=== PATIENT | female | born 1980 | race Caucasian/White ===

== ENCOUNTER 2021-12-27 09:57 | Emergency (ER) | payer OTHER ==
[~2021-12-27] VITALS: Ht 162.6 cm; Wt 65.3 kg
[2021-12-27 10:02] VITALS: BP 128/84
--- NOTE | 2021-12-27 10:05 | NUR ---
AMBULATED TO BED 12
--- NOTE | 2021-12-27 10:13 | NUR ---
41 Y/O FEMALE C/O DYSURIA AND FLANK PAIN 03/28 X1DAY. PT REPORTS TAKING TYLENOL WITH MILD RELIEF. PT STATES INTERMITTENT FEVERS X5DAYS. PT STATES 1 TIME MILD HEMATURIA BUT NONE TODAY. DENIES DISCHARGE. N/V/D. DENIES PMH NKA
--- NOTE | 2021-12-27 10:20 | NUR ---
DR. PHILLIPS AT PT BEDSIDE FOR FURTHER EVALUATION.
[2021-12-27 12:05] LABS: BASOPHILS # (AUTO) 0.1 K/uL (0.00-0.22); EOSINOPHILS % (AUTO) 0.6 % (0.0-4.0); HEMATOCRIT 38.7 % (36-48); HEMOGLOBIN 13.4 g/dL (12.0-16.0); LYMPHOCYTES # (AUTO) 1.1 K/uL (2.5-16.5); LYMPHOCYTES % (AUTO) 14.9 % (20.5-51.1); MEAN CORPUSCULAR HEMOGLOBIN 31 pg (27-31); MEAN CORPUSCULAR HGB CONC 35 g/dL (33-37); MEAN CORPUSCULAR VOLUME 90.2 fL (80-94); MONOCYTES # (AUTO) 0.6 K/uL (0.8-1.0); MONOCYTES % (AUTO) 8.1 % (1.7-9.3); NEUTROPHILS # (AUTO) 5.8 K/uL (1.8-7.7); NEUTROPHILS % (AUTO) 75.4 % (42.2-75.2); PLATELET COUNT (AUTO) 203 K/uL (140-450); RED CELL DISTRIBUTION WIDTH 12.9 % (11.6-13.7); WHITE BLOOD COUNT (AUTO) 7.7 K/uL (4.8-10.8)
[2021-12-27 12:41] LABS: ALBUMIN 3.9 g/dL (3.4-5.0); ANION GAP 11.4 (8-16); CARBON DIOXIDE 27.2 mmol/L (21-32); CREATININE 0.8 mg/dL (0.6-1.3); POTASSIUM 4.6 mmol/L (3.5-5.1); TOTAL BILIRUBIN 0.4 mg/dL (0.0-1.0)
[2021-12-27] MEDS ORDERED: SULFAMETH/TRIMETH DS 800/160MG 1 TAB PO ONE (12:50)
--- NOTE | 2021-12-27 12:51 | NUR ---
PT SITTING IN CHAIR, VSS, WILL CONTINUE TO MONITOR.
[2021-12-27] MEDS ORDERED: SULF-59 PO (13:25)
[2021-12-27 13:47] VITALS: BP 122/77
--- NOTE | 2021-12-27 13:48 | NUR ---
Patient discharged with v/s stable. Written and verbal after care instructions given FOR PYELONEPHRITIS and explained. Patient alert, oriented and verbalized understanding of instructions. Ambulatory with steady gait. All questions addressed prior to discharge. ID band removed. Patient advised to follow up with PMD. Rx of BACTRIM given. Patient educated on indication of medication including possible reaction and side effects. Opportunity to ask questions provided and answered.
[2021-12-27 13:49] LABS: APPEARANCE,URINE SLIGHTLY CLOUDY (CLEAR); COLOR,URINE YELLOW (YELLOW)
[2021-12-27 13:50] LABS: BILIRUBIN,URINE NEGATIVE (NEGATIVE); BLOOD, URINE 1+ (NEGATIVE); UGLUCOSE NEGATIVE (NEGATIVE)
[2021-12-27 13:51] LABS: LEUKOCYTE ESTERASE ,URINE 2+ (NEGATIVE); NITRITE, URINE POSITIVE (NEGATIVE)
[2021-12-27 13:52] LABS: YEAST,URINE None Seen /HPF (None Seen)
[2021-12-27 14:01] LABS: CALCIUM OXALATE CRYSTALS,UR None Seen /HPF (None Seen); HYALINE CASTS, URINE 0-10 /LPF (None Seen); TRIPLE PHOSPHATE CRYSTAL,UR None Seen /HPF (None Seen); URIC ACID CRYSTALS,URINE None Seen /HPF (None Seen); URINE AMORPHOUS URATE None Seen /HPF (None Seen)
[2021-12-27 14:02] LABS: COARSE GRANULAR CASTS,URINE None Seen /LPF (None Seen)
== END 2021-12-27 13:48 | disposition home or self-care (01) ==
LOC: MED 09:57
DX: N10 Acute pyelonephritis (principal); R30.0 Dysuria
CPT/HCPCS: 36415; 80053; 81001; 81025; 85025; 87086; 99284